=== PATIENT | male | born 1955 | race Two or more races ===

== ENCOUNTER 2019-05-22 08:11 | Day surgery (SDC) | payer OTHER ==
[2019-05-22] VITALS (10 sets, daily range): BP systolic 118–182; BP diastolic 72–100
[~2019-05-22] VITALS: Ht 172.7 cm; Wt 77.1 kg
[~2019-05-22 08:11] MED LIST: ASPIR 8181 MG ORAL; VITAMIN D1000 UNI1 ORAL
[2019-05-22] MEDS ORDERED: ACYCLOVIR400 MG ORAL (08:51)
[2019-05-22] MEDS ORDERED: DESCOVY PO (08:51)
[2019-05-22] MEDS ORDERED: NEVIRAPINE ER400 MG PO (08:51)
[2019-05-22] MEDS ORDERED: ATORVASTATIN CA20 MG ORAL (08:51)
[2019-05-22] MEDS ORDERED: cefOXitin 1gm Inj ONE (09:24)
[2019-05-22] MEDS ORDERED: LR 1000ml 1,000 ML IVLG SCH (09:26)
--- NOTE | 2019-05-22 09:28 | Anethesia Preoperative Eval ---
Anesthesia Pre-op PMH/ROS General Date of Evaluation: May 22, 2019 Time of Evaluation: 10:37 Anesthesiologist: Delicia ASA Score: ASA 3 Mallampati Score Class I : Soft palate, uvula, fauces, pillars visible Class II: Soft palate, uvula, fauces visible Class III: Soft palate, base of uvula visible Class IV: Only hard plate visible Mallampati Classification: Class II Surgeon: Rayray Diagnosis: Human Papilloma Virus Surgical Procedure: Anoscopy Anesthesia History: none Family History: no anesthesia problems Allergies: Coded Allergies: ABACAVIR (Verified Allergy, Unknown, SWELLING, 05/22/19) Medications: see eMAR Patient NPO?: Yes Past Medical History Cardiovascular: Reports: HTN, other - HL Pulmonary: Reports: other - HX PCP Hematology/Immune: Reports: other - HIV Anesthesia Pre-op Phys. Exam Physician Exam Last Vital Signs Date Time Temp Pulse Resp B/P (MAP) Pulse Ox O2 Delivery O2 Flow Rate FiO2 05/22/19 08:54 Room Air 05/22/19 08:44 97.6 56 18 171/82 96 Constitutional: NAD Neurologic: CN 2-12 intact Cardiovascular: RRR Respiratory: CTA Gastrointestinal: S/NT/ND Airway Exam Mallampati Score: Class II MO: full ROM: limited Teeth: intact Anesthesia Pre-op A/P Risk Assessment & Plan Assessment: ASA 3 Plan: TIVA, SED Status Change Before Surgery: No Pre-Antibiotics Dru Gram Cefoxitin IV Given Within 1 Hr of Incision: Yes Time Given: 10:51 Shon Nesbitt MD May 22, 2019 09:28
[2019-05-22] MEDS ORDERED: Meperidine 50mg/ml Inj(FOR RIGORS ONLY) IVP PRN (09:30)
[2019-05-22] MEDS ORDERED: fentaNYL 100 mcg/2 mL IV PRN (09:30)
[2019-05-22] MEDS ORDERED: Hydromorphone 0.5mg/0.5ml inj IVP PRN (09:30)
[2019-05-22] MEDS ORDERED: LORazepam Inj 2mg/ml 1ml IV PRN (09:30)
[2019-05-22] MEDS ORDERED: DiphenhydrAMINE 50mg/ml Inj IVP PRN (09:30)
[2019-05-22] MEDS ORDERED: Metoclopramide 10mg/2ml Inj IVP PRN (09:30)
[2019-05-22] MEDS ORDERED: Labetalol 5mg/ml 20ml vial IV PRN (09:30)
[2019-05-22] MEDS ORDERED: Acetaminophen (Non formulary) 100 ML IV ONE (09:30)
[2019-05-22] MEDS ORDERED: Atropine Sulfate 0.4mg/ml inj IVP PRN (09:30)
[2019-05-22] MEDS ORDERED: HYDROcodone/Acetamin 5/325 tab ORAL PRN (09:30)
[2019-05-22] MEDS ORDERED: HYDROcodone/Acetamin 7.5/325 tab ORAL PRN (09:30)
[2019-05-22] MEDS ORDERED: Ketorolac 30mg Inj IV PRN ×2 (09:30)
[2019-05-22] MEDS ORDERED: oxyCODONE HCL/Acetaminophen 5/325mg ORAL PRN (09:30)
[2019-05-22] MEDS ORDERED: Midazolam 2mg/2ml Inj IVP PRN (09:30)
--- NOTE | 2019-05-22 09:48 | Pre-Procedure Note/Attestation ---
Pre-Procedure Note/Attestation Complete Prior to Procedure Planned Procedure: not applicable Procedure Narrative: High-resolution anoscopy with biopsies Indications for Procedure Pre-Operative Diagnosis: HPV Attestation I attest that I discussed the nature of the procedure; its benefits; risks and complications; and alternatives (and the risks and benefits of such alternatives ), prior to the procedure, with the patient (or the patient's legal home office representative). I attest that, if there was a reasonable possibility of needing a blood transfusion, the patient (or the patient's legal home office representative) was given the [facility] standardized written summary, pursuant to the [employer] Yosvany Blood Safety Act ([place] Health and Safety Code # 1645, as amended). I attest that I re-evaluated the patient just prior to the surgery and that there has been no change in the patient's H&P, except as documented below: Virginia Seo MD May 22, 2019 09:48
--- NOTE | 2019-05-22 10:10 | 48 Hour Post Anesthesia Eval ---
Post Anesthesia Evaluation Procedure: Anoscopy Date of Evaluation: May 22, 2019 Time of Evaluation: 13:43 Blood Pressure Systolic: 146 0: 74 Pulse Rate: 51 Respiratory Rate: 18 Temperature (Fahrenheit): 98.2 O2 Sat by Pulse Oximetry: 100 Airway: patent Nausea: No Vomiting: No Pain Intensity: 2 Hydration Status: adequate Cardiopulmonary Status: Stable Mental Status/LOC: patient returned to baseline Follow-up Care/Observations: 0 Post-Anesthesia Complications: 0 Follow-up care needed: ready to discharge Shon Nesbitt MD May 22, 2019 10:10
--- NOTE | 2019-05-22 10:10 | Immediate Post-Op Evaluation ---
Immediate Post-Op Evalulation Immediate Post-Op Evalulation Procedure: Anoscopy Date of Evaluation: May 22, 2019 Time of Evaluation: 11:37 IV Fluids: 1000 LR Blood Products: 0 Estimated Blood Loss: 8 Urinary Output: 0 Blood Pressure Systolic: 118 Blood Pressure Diastolic: 72 Pulse Rate: 50 Respiratory Rate: 16 O2 Sat by Pulse Oximetry: 100 Temperature (Fahrenheit): 97 Pain Score (1-10): 2 Nausea: No Vomiting: No Complications 0 Patient Status: awake, reacts, patent, none Hydration Status: adequate Dru Gram Cefoxitin IV Given Within 1 Hr of Incision: Yes Time Given: 10:51 Shon Nesbitt MD May 22, 2019 10:09
[2019-05-22] MEDS ORDERED: Lidocaine 1% Plain 30 ml INJ ONE (10:11)
[2019-05-22] MEDS ORDERED: Propofol 200mg/20ml IV ONE (10:11)
[2019-05-22] MEDS ORDERED: Sodium Chloride 10ml vial INJ ONE (10:11)
[2019-05-22] MEDS ORDERED: Dexamethasone 4mg/ml vial ONE ×3 (10:11→10:37)
[2019-05-22] MEDS ORDERED: LR 1000ml ONE (10:30)
[2019-05-22] MEDS ORDERED: Ropivacaine 5mg/ml Vial 30ml INJ ONE (10:30)
[2019-05-22] MEDS ORDERED: Sterile Water Irrig 1000ml IRRIG ONE (10:30)
[2019-05-22] MEDS ORDERED: NS Irrig 1000ml ONE (10:30)
[2019-05-22] MEDS ORDERED: EPINEPHrine 1mg/1ml Amp ONE (10:31)
[2019-05-22] MEDS ORDERED: Acetic Acid 3% Solution 15ml TOPIC ONE ×2 (10:45→11:20)
--- NOTE | 2019-05-22 11:17 | Brief Operative Note ---
Immediate Post Operative Note Operative Note Pre-op Diagnosis: HPV Procedure: High-resolution anoscopy with biopsies Post-op Diagnosis: same as pre-op Findings: consistent w/pre-op dx studies Surgeon: Virginia Seo MD Anesthesiologist: Shon Nesbitt MD Anesthesia: moderate sedation Specimen: yes Complications: none Condition: stable Fluids: see anesthesia record Estimated Blood Loss: minimal Drains: none Implant(s) used?: No Virginia Seo MD May 22, 2019 11:17
--- NOTE | 2019-05-22 20:45 | Operative Note - Dictated ---
DATE OF OPERATION: 05/22/2019 PREOPERATIVE DIAGNOSES: History of HPV and abnormal anal Pap smear. POSTPROCEDURE DIAGNOSES: History of HPV and abnormal anal Pap smear. PROCEDURE: High-resolution anoscopy with biopsies. SURGEON: Virginia Seo M.D. ANESTHESIOLOGIST: Shon Nesbitt M.D. ANESTHESIA: Propofol sedation with local anesthetic. INDICATION FOR PROCEDURE: The patient is a 64-year-old male, who was sent to my office by his physician, Dr. Albert Rey for colorectal surgical evaluation for abnormal anal Pap smear and also for a palpable anal papilla. The patient was scheduled for high-resolution anoscopy in light of his history of human immunodeficiency virus and history of abnormal anal Pap smear and also to assess the anal papilla that was palpated on physical exam. DESCRIPTION OF PROCEDURE: Upon consent from the patient, the patient brought to the operating room and placed in the prone idris-knife position on the operating table. Once adequate sedation was established with propofol drip, the patient's buttocks were prepped and draped in usual surgical fashion. A 40 mL of 0.5% ropivacaine with epinephrine mixed with 8 mg of dexamethasone was used as a perianal and pudendal block. A Hill-Lou retractor was placed and the anal canal was noted to be moderate internal hemorrhoids circumferentially. There was noted to be anal papilla that was prominent in the anal canal, which was sent off as specimen. Multiple passes were taken of all 4 quadrants of the perianal region, anal verge, and dentate line. It is also on the field as separate specimens. The anal canal was stained with 3% acetic acid and all areas of staining were electrofulgurated as well. The anal canal was then irrigated and hemostasis was confirmed. Sterile dry dressing was used as a dressing. Sponge, needle, and instrument counts were correct at the end of the case. The patient was awake from anesthesia and brought to postanesthesia recovery room in stable condition. ESTIMATED BLOOD LOSS: Less than 5 mL. DRAINS: None. SPECIMENS: Anal papilla, multiple biopsies of the perianal region, anal verge, and dentate line. COMPLICATION: None. Virginia Seo M.D. DR: SANDRA JOB#: [id number] CC: CJ
== END 2019-05-22 13:30 | disposition home or self-care (01) ==
LOC: SUR 08:11
DX: A63.0 Anogenital (venereal) warts (principal); I10 Essential (primary) hypertension; B20 Human immunodeficiency virus [HIV] disease; Z88.8 Allergy status to other drugs, medicaments and biological substances
CPT/HCPCS: 46606; J0694; J1100; J2001; J2250; J2405; J2704; 94003; 94150